=== PATIENT | female | born 1990 | race Two or more races ===

== ENCOUNTER 2023-02-20 22:16 | Emergency (ER) | payer MEDICAID, OTHER ==
[~2023-02-20] VITALS: Ht 157.5 cm; Wt 81.8 kg
[2023-02-20 23:29] LABS: Basophils # (auto) 0.1 10 ^3/uL (0-0.2); Basophils % (auto) 3.6 % (0.0-2.0); Eosinophils # (auto) 0 10 ^3/uL (0-0.8); Eosinophils % (auto) 0.4 % (0.0-7.0); Hemoglobin 9.5 g/dL (12.2-16.2); Lymphocytes # (auto) 0.9 10 ^3/uL (0.4-5.4); Lymphocytes % (auto) 32.2 % (10.0-50.0); Mean Corpuscular Hemoglobin 24.4 pg (28.0-32.0); Mean Corpuscular Hgb Conc. 30.6 g/dL (32.0-36.0); Mean Corpuscular Volume 79.7 fL (80.0-100.0); Monocytes # (auto) 0.2 10 ^3/uL (0-1.3); Monocytes % (auto) 5.4 % (0.0-12.0); Neutrophils # (auto) 1.7 10 ^3/uL (1.6-8.6); Neutrophils % (auto) 58.4 % (37.0-80.0); Nucleated Red Blood Cells % 0.2 %; Red Blood Cells 3.89 10^6/uL (4.0-5.20); Red Cell Distribution Width 25.2 % (11.8-14.3); White Blood Cell 2.9 10^3/uL (4.4-10.8)
[2023-02-20 23:43] LABS: Potassium 3.7 mmol/L (3.5-5.1)
[2023-02-20 23:44] LABS: Salicylate < 1.7 mg/dL (2.8-20.0)
[2023-02-20 23:46] LABS: BUN/Creatinine Ratio 21.2 (10.0-20.0); Total Protein 8.6 g/dL (6.4-8.2)
[2023-02-20 23:49] LABS: Acetaminophen < 2.0 ug/mL (10-30)
[2023-02-21] MEDS ORDERED: ONDANSETRON HCL 4 MG/2 ML VIAL IV ONE (04:15)
[2023-02-21] MEDS ORDERED: LACTATED RINGER'S 1,000 ML IV ONE (04:15)
[2023-02-21 06:28] VITALS: BP 131/74
== END 2023-02-21 05:31 | disposition home or self-care (01) ==
LOC: EDBD 22:16 → ER 22:22
DX: T42.4X1A Poisoning by benzodiazepines, accidental (unintentional), initial encounter (principal); R53.1 Weakness; I10 Essential (primary) hypertension; F32.9 Major depressive disorder, single episode, unspecified; D64.9 Anemia, unspecified; D72.819 Decreased white blood cell count, unspecified; R74.01 Elevation of levels of liver transaminase levels; F10.129 Alcohol abuse with intoxication, unspecified; Y90.8 Blood alcohol level of 240 mg/100 ml or more; Y92.89 Other specified places as the place of occurrence of the external cause
CPT/HCPCS: 36415; 80053; 80320; 80329; 83690; 85025; 96361; 96374; 99283; J2405